=== PATIENT | female | born 1975 | race Caucasian/White ===

== ENCOUNTER 2018-04-25 18:49 | Emergency (ER) | payer BC ==
[2018-04-25 18:56] VITALS: BP 119/77; PULSE 73; RESP 18; TEMP 98.3
--- NOTE | 2018-04-25 20:16 | XR ---
EXAMINATION TYPE: XR hand complete RT DATE OF EXAM: 04/25/2018 COMPARISON: NONE HISTORY: Pain. Puncture wound. TECHNIQUE: 3 views FINDINGS: I see no fracture nor dislocation. There is no sign of radiopaque foreign body. Joint space s are normal. IMPRESSION: Negative right hand exam.
--- NOTE | 2018-04-25 20:26 | ED ---
Skin/Abscess/FB HPI - General Chief complaint: Skin/Abscess/Foreign Body Stated complaint: puncture wound, fb right wrist Time Seen by Provider: 04/25/18 19:33 Source: patient, RN notes reviewed, old records reviewed Mode of arrival: ambulatory Limitations: no limitations - History of Present Illness Initial comments: This patient is a 43 year old female with CC of puncture wound from colored pencil to R wrist. She was walking with children's toys and tripped. She reports that she has a small lacertion with fatty tissue exposure. She reports full ROM of fingers and thumb. She denies paresthesia. She has no other symptoms at this time. TDAP is up to date. - Related Data Previous Rx's Medication Instructions Recorded Cephalexin [Keflex] 500 mg PO Q8HR #21 cap 04/25/18 Allergies Allergy/AdvReac Type Severity Reaction Status Date / Time Penicillins AdvReac Nausea & Verified 04/25/18 18:56 Vomiting Sulfa (Sulfonamide AdvReac Nausea & Verified 04/25/18 18:56 Antibiotics) Vomiting Review of Systems ROS Statement: Those systems with pertinent positive or pertinent negative responses have been documented in the HPI. ROS Other: All systems not noted in ROS Statement are negative. Past Medical History Past Medical History: Osteoarthritis (OA) History of Any Multi-Drug Resistant Organisms: None Reported Past Surgical History: Appendectomy Past Psychological History: Anxiety Smoking Status: Current every day smoker Past Alcohol Use History: Occasional Past Drug Use History: None Reported General Exam - General Exam Comments Initial Comments: This is a well appearing 43 yo female, no distress. Limitations: no limitations General appearance: alert, in no apparent distress Head exam: Present: atraumatic, normocephalic, normal inspection Eye exam: Present: normal appearance, PERRL, EOMI. Absent: scleral icterus, conjunctival injection, periorbital swelling ENT exam: Present: normal exam, mucous membranes moist Neck exam: Present: normal inspection. Absent: tenderness, meningismus, lymphadenopathy Respiratory exam: Present: normal lung sounds bilaterally. Absent: respiratory distress, wheezes, rales, rhonchi, stridor Cardiovascular Exam: Present: regular rate, normal rhythm, normal heart sounds. Absent: systolic murmur, diastolic murmur, rubs, gallop, clicks GI/Abdominal exam: Present: soft, normal bowel sounds. Absent: distended, tenderness, guarding, rebound, rigid Right Forearm Wrist exam: Present: laceration (1cm laceration and puncture wound offer anterior wrist close to thenar eminemce. ). Absent: normal inspection Hand Wrist exam: Present: normal inspection, full ROM Back exam: Present: normal inspection Neurological exam: Present: alert, oriented X3, CN II-XII intact Psychiatric exam: Present: normal affect, normal mood Skin exam: Present: warm, dry, intact, normal color. Absent: rash Course Vital Signs 04/25/18 18:52 Temperature 98.3 F Pulse Rate 73 Respiratory 18 Rate Blood Pressure 119/77 O2 Sat by Pulse 100 Oximetry Procedures - Laceration Laceration #1 Site: upper extremity (R wrist) Size (cm): 1 Description: linear Depth: simple, single layer Anesthetic Used: lidocaine 1% Anesthesia Technique: local infiltration Amount (mls): 2 Pre-repair: wound explored, irrigated extensively Type of Sutures: nylon Size of Sutures: 6-0 Number of Sutures: 1 Technique: simple, interrupted Patient Tolerated Procedure: well, no complications Medical Decision Making - Medical Decision Making This patient is a 43 year old female with CC of puncture wound from colored pencil to R wrist. She was walking with children's toys and tripped. She reports that she has a small lacertion with fatty tissue exposure. She reports full ROM of fingers and thumb. She denies paresthesia. Xray is negative for retained foreign body or acute process. Wound was throughly irrigated. Wound clsed with 1 suture. Will have patient on keflex for prophylaxis antibiotic. Return parameters discussed. - Radiology Data Radiology results: report reviewed Xray is negative for acute process. Disposition Clinical Impression: Puncture wound of right hand Disposition: HOME SELF-CARE Condition: Good Instructions: Puncture Wound (ED) Additional Instructions: Patient advised to follow-up with primary care physician. Take the medication as prescribed. He can have the suture removed in approximately 5-7 days. Please return to the emergency room in 7 days to have sutures removed. Please leave wound covered for the first 24-48 hours and then leave open to air after that time. Please use clean soap and water to clean the suture area to prevent scabbing over the top of your sutures. Please watch for any signs of infection which may include but not limited to increased pain, swelling, redness, fever or chills. Please return to the emergency room if any signs of infection do occur. Please return to the emergency room for any other concerns or complications. Prescriptions: Cephalexin [Keflex] 500 mg PO Q8HR #21 cap Is patient prescribed a controlled substance at d/c from ED?: No When asked, does pt state using other controlled substances?: No If prescribed controlled substance>3 days was MAPS reviewed?: No If opioid is for acute pain is fill amount 7 days or less?: No If Rx opioid, was Start Talking consent form obtained?: No Referrals: None,Stated [Primary Care Provider] - 1-2 days Time of Disposition: 20:24
== END 2018-04-25 20:37 | disposition home or self-care (01) ==
LOC: EC 18:49
DX: S61.431A Puncture wound without foreign body of right hand, initial encounter (principal); F17.200 Nicotine dependence, unspecified, uncomplicated; Z88.0 Allergy status to penicillin; Z88.2 Allergy status to sulfonamides; W01.0XXA Fall on same level from slipping, tripping and stumbling without subsequent striking against object, initial encounter; W45.8XXA Other foreign body or object entering through skin, initial encounter; Y93.01 Activity, walking, marching and hiking
CPT/HCPCS: 12001; 99284